=== PATIENT | female | born 1980 | race Caucasian/White ===

== ENCOUNTER 2016-03-02 13:54 | Emergency (ER) | payer OTHER ==
[~2016-03-02] VITALS: Ht 167.6 cm; Wt 68.0 kg
[~2016-03-02 13:54] MED LIST: BACTRIM DS 8001 TA1 PO
[2016-03-02 14:04] VITALS: BP 115/73
[2016-03-02] MEDS ORDERED: FLONASE ALLERG9.9 ML NAS (14:21)
[2016-03-02] MEDS ORDERED: CLARITIN10 MG PO (14:21)
[2016-03-02] MEDS ORDERED: PREDNISONE10 MG PO (14:21)
[2016-03-02] MEDS ORDERED: ROBITUSSIN AC 110 ML PO (14:21)
== END 2016-03-02 15:08 | disposition home or self-care (01) ==
LOC: ED 13:54
DX: B34.9 Viral infection, unspecified (principal); F17.200 Nicotine dependence, unspecified, uncomplicated

== ENCOUNTER → 2017-12-18 | Outpatient (CLI) | payer OTHER ==
[~2017-12-18] MED LIST changes: +CLARITIN10 MG PO; +FLONASE ALLERG9.9 ML NAS; +PREDNISONE10 MG PO; +ROBITUSSIN AC 110 ML PO
== END | disposition home or self-care (01) ==
LOC: RAD 12-17 13:01
DX: M54.5 Low back pain (principal)

== ENCOUNTER 2018-10-03 21:19 | Emergency (ER) | payer OTHER ==
[~2018-10-03] VITALS: Ht 165.1 cm; Wt 72.6 kg
[2018-10-03 21:21] VITALS: BP 144/82
[2018-10-03] MEDS ORDERED: CEPHALEXIN500 M1 PO (23:51)
== END 2018-10-04 00:14 | disposition home or self-care (01) ==
LOC: ED 21:19
DX: S91.114A Laceration without foreign body of right lesser toe(s) without damage to nail, initial encounter (principal); S51.811A Laceration without foreign body of right forearm, initial encounter; Z79.899 Other long term (current) drug therapy; Y00.XXXA Assault by blunt object, initial encounter; Y93.89 Activity, other specified; Y92.098 Other place in other non-institutional residence as the place of occurrence of the external cause; Y99.8 Other external cause status

== ENCOUNTER 2020-10-20 09:30 | Emergency (ER) | payer BC ==
[~2020-10-20] VITALS: Ht 165.1 cm; Wt 70.3 kg
[~2020-10-20 09:30] MED LIST changes: +CEPHALEXIN500 M1 PO
[2020-10-20 09:54] LABS: BILIRUBIN Negative (Negative); BLOOD Negative (Negative); CLARITY Clear (Clear); COLOR Yellow (Yellow); GLUCOSE Negative (Negative); KETONE Negative (Negative); LEUKO ESTERASE Negative (Negative); NITRITE Negative (Negative); PH 6.5 (4.5-8.0); UROBILINOGEN 0.2 E.U./dl (0.0-1.0)
[2020-10-20 10:05] LABS: BACTERIA TRACE; EPITHELIAL CELLS 16-20
[2020-10-20 10:18] LABS: BASO % 0.3 % (0.0-1.0); EOS % 0.7 % (1.0-4.0); HEMATOCRIT 35.9 % (37.0-47.0); LYMPH # 0.8 10*3/uL (1.3-4.4); LYMPH % 13.4 % (27.0-41.0); MEAN CORPUSCULAR HGB 32.4 pg (27.0-31.0); MEAN CORPUSCULAR HGB CONC 33.4 g/dl (33.0-37.0); MEAN PLATELET VOLUME 9.6 fl (9.6-12.3); MONO # 0.3 10*3/uL (0.1-1.0); MONO % 5.7 % (3.0-9.0); NEUT # 4.7 10*3/uL (2.3-7.9); NEUT % 79.7 % (47.0-73.0); PLATELET COUNT AUTOMATED 209 10*3/uL (130-400); RED CELL DISTRI WIDTH 12.8 % (0-14.5); WHITE BLOOD COUNT 5.8 10*3/uL (4.8-10.8)
[2020-10-20 10:32] LABS: ALKALINE PHOSPHATASE 42 U/L (45-117); BUN 3 mg/dl (7-24); CHLORIDE 110 mmol/L (98-107); CREATININE 0.57 mg/dL (0.55-1.02); LIPASE 105 U/L (73-393); POTASSIUM 3.7 mmol/L (3.5-5.1); SGOT/AST 51 IU/L (3-35); SGPT/ALT 67 U/L (12-78); SODIUM 140 mmol/L (136-145); TOTAL PROTEIN 7.6 gm/dL (6.4-8.2)
[2020-10-20] MEDS ORDERED: ZOFRAN4 MG PO (15:03)
[2020-10-20 15:15] VITALS: BP 119/81
== END 2020-10-20 15:08 | disposition home or self-care (01) ==
LOC: ED 09:30
PROVIDERS: Internal Medicine
DX: U07.1 COVID-19 (principal)

== ENCOUNTER 2020-11-09 14:32 | Emergency (ER) | payer BC ==
[~2020-11-09 14:32] MED LIST changes: +ZOFRAN4 MG PO
[2020-11-09 14:38] VITALS: BP 157/95
== END 2020-11-09 18:45 | disposition home or self-care (01) ==
LOC: ED 14:32
DX: S00.93XA Contusion of unspecified part of head, initial encounter (principal); W51.XXXA Accidental striking against or bumped into by another person, initial encounter; Y93.89 Activity, other specified; Y92.89 Other specified places as the place of occurrence of the external cause; Y99.8 Other external cause status

== ENCOUNTER → 2022-07-03 | Outpatient (CLI) | payer OTHER | END | disposition home or self-care (01) | LOC: RAD 12:02 | PROVIDERS: ATTEND Nurse Practitioner Family | DX: M47.816 Spondylosis without myelopathy or radiculopathy, lumbar region (principal); M79.604 Pain in right leg; M79.605 Pain in left leg ==

== ENCOUNTER 2022-10-01 10:09 | Emergency (ER) | payer OTHER ==
[~2022-10-01] VITALS: Ht 165.1 cm; Wt 72.6 kg
[2022-10-01 10:19] VITALS: BP 120/70
[2022-10-01] MEDS ORDERED: BUPROPION HYDR150 M1 PO (10:20)
[2022-10-01] MEDS ORDERED: CITALOPRAM20 MG PO (10:20)
[2022-10-01] MEDS ORDERED: CEPHALEXIN500 M1 PO (11:28)
== END 2022-10-01 11:30 | disposition home or self-care (01) ==
LOC: ED 10:09
DX: S91.332A Puncture wound without foreign body, left foot, initial encounter (principal); F41.9 Anxiety disorder, unspecified; F32.A Depression, unspecified; W22.8XXA Striking against or struck by other objects, initial encounter; Y93.89 Activity, other specified; Y92.89 Other specified places as the place of occurrence of the external cause; Y99.8 Other external cause status